=== PATIENT | female | born 1940 | race Caucasian/White ===

== ENCOUNTER 2024-05-06 12:25 | Emergency (ER) | payer BC, MEDICARE ==
[~2024-05-06] VITALS: Ht 154.9 cm; Wt 77.0 kg
[2024-05-06 12:47] VITALS: O2SAT 96
[2024-05-06 13:42] LABS: BASOPHILS % 0.3 % (0.0-2.0); EOSINOPHILS % 0.8 % (0.0-5.0); HEMOGLOBIN. 14.4 g/dL (12.0-16.0); LYMPHOCYTES % 8.7 % (20.0-50.0); MEAN CORPUSCULAR HEMOGLOBIN 30.1 pg (28.0-32.0); MEAN CORPUSCULAR HGB CONC 31.9 g/dL (31.0-37.0); MEAN CORPUSCULAR VOLUME 94.3 fL (81.0-99.0); MEAN PLATELET VOLUME 8.2 fl (7.4-10.4); MONOCYTES % 7.3 % (2.0-8.0); NEUTROPHILS % 82.9 % (40.0-76.0); PLATELET 307 x1000/uL (130-400); RED BLOOD CELL COUNT 4.77 mill/uL (4.2-5.4); RED CELL DISTRIBUTION WIDTH 13.7 % (11.6-14.6); WHITE BLOOD COUNT 11.7 x1000/uL (4.5-11.0)
[2024-05-06 13:47] LABS: CHLORIDE 104 mEq/L (98-107); POTASSIUM 3.9 mEq/L (3.5-5.1); SODIUM 140 mEq/L (136-145)
[2024-05-06 13:48] LABS: CARBON DIOXIDE 29 mEq/L (21-32)
[2024-05-06 13:49] LABS: CALCIUM 9.3 mg/dL (8.7-10.4); PROTHROMBIN TIME 10.8 sec (9.6-11.0)
[2024-05-06 13:53] LABS: CREATININE 0.9 mg/dL (0.6-1.0); GLUCOSE 122 mg/dL (70-105)
[2024-05-06 13:54] LABS: UREA NITROGEN BLOOD 17 mg/dL (9-23)
[2024-05-06 13:55] LABS: ALANINE AMINOTRANSFERASE 19 IU/L (10-49); ALBUMIN 4.2 g/dL (3.2-4.8); ASPARTATE AMINOTRANSFERASE 24 IU/L (<34)
[2024-05-06 13:56] LABS: BILIRUBIN DIRECT 0.2 mg/dL (<=3.0); BILIRUBIN TOTAL 0.7 mg/dL (0.1-1.0); PROTEIN TOTAL 7.5 g/dL (6.0-8.3)
[2024-05-06 21:25] VITALS: BP 139/83; PULSE 91; RESP 18; TEMP 36.9; O2SAT 96
== END 2024-05-06 21:50 | disposition home or self-care (01) ==
LOC: ER 12:43 → CANBEDREQ 20:06 → ER 21:50
DX: N93.9 Abnormal uterine and vaginal bleeding, unspecified (principal); F03.90 Unspecified dementia, unspecified severity, without behavioral disturbance, psychotic disturbance, mood disturbance, and anxiety; Z98.890 Other specified postprocedural states; Z88.2 Allergy status to sulfonamides
CPT/HCPCS: 36415; 74176; 76856; 80048; 80076; 85025; 99284; 99285